=== PATIENT | female | born 1970 | race Two or more races ===

== ENCOUNTER 2021-04-08 20:52 | Emergency (ER) | payer SELFPAY ==
[~2021-04-08] VITALS: Ht 165.1 cm; Wt 102.1 kg
[2021-04-08 22:04] VITALS: BP 139/73
== END 2021-04-08 23:01 | disposition left against medical advice (07) ==
LOC: ER 20:55
DX: R42 Dizziness and giddiness (principal); Z53.21 Procedure and treatment not carried out due to patient leaving prior to being seen by health care provider

== ENCOUNTER → 2023-06-01 | Outpatient (CLI) | payer MEDICAID ==
[~2023-06-01] VITALS: Ht 162.6 cm; Wt 106.1 kg
== END | disposition home or self-care (01) ==
LOC: Rad HDHVI 14:26
PROVIDERS: ATTEND Internal Medicine Cardiovascular Disease
DX: R07.89 Other chest pain (principal); I10 Essential (primary) hypertension; E11.9 Type 2 diabetes mellitus without complications; R06.02 Shortness of breath; Z79.84 Long term (current) use of oral hypoglycemic drugs; Z79.899 Other long term (current) drug therapy
CPT/HCPCS: 78452; 93017; 96374; A9500